=== PATIENT | male | born 2000 | race Two or more races ===

== ENCOUNTER 2024-02-27 13:12 | Emergency (ER) | payer OTHER ==
[~2024-02-27] VITALS: Ht 170.2 cm; Wt 67.6 kg
[2024-02-27 13:31] VITALS: BP 135/66; TEMP 98
[2024-02-27] MEDS ORDERED: CLIN300C12 PO (14:08)
[2024-02-27 14:40] VITALS: O2SAT 99
== END 2024-02-27 14:41 | disposition home or self-care (01) ==
LOC: ER 13:12
DX: S60.450A Superficial foreign body of right index finger, initial encounter (principal); Z79.899 Other long term (current) drug therapy; Z88.0 Allergy status to penicillin; Z88.7 Allergy status to serum and vaccine; W22.8XXA Striking against or struck by other objects, initial encounter; Y93.89 Activity, other specified; Y92.89 Other specified places as the place of occurrence of the external cause; Y99.8 Other external cause status
CPT/HCPCS: 73140-TC